=== PATIENT | male | born 1990 | race Asian ===

== ENCOUNTER 2018-03-17 06:52 | Emergency (ER) | payer OTHER ==
[~2018-03-17] VITALS: Ht 172.7 cm; Wt 86.2 kg
[2018-03-17 06:57] VITALS: BP_SYST 145
[2018-03-17 07:28] VITALS: BP_SYST 132
== END 2018-03-17 07:28 | disposition home or self-care (01) ==
LOC: SED 06:52
DX: S61.011D Laceration without foreign body of right thumb without damage to nail, subsequent encounter (principal); X58.XXXD Exposure to other specified factors, subsequent encounter
CPT/HCPCS: 99283

== ENCOUNTER 2018-03-25 06:34 | Emergency (ER) | payer OTHER ==
[~2018-03-25] VITALS: Ht 172.7 cm; Wt 86.2 kg
[2018-03-25 06:40] VITALS: BP_SYST 144
[2018-03-25 07:10] VITALS: BP_SYST 138
== END 2018-03-25 07:10 | disposition home or self-care (01) ==
LOC: SED 06:34
DX: S61.411D Laceration without foreign body of right hand, subsequent encounter (principal); R03.0 Elevated blood-pressure reading, without diagnosis of hypertension; X58.XXXD Exposure to other specified factors, subsequent encounter
CPT/HCPCS: 99282